=== PATIENT | male | born 1980 | race Asian ===

== ENCOUNTER 2017-10-22 15:09 | Emergency (ER) | payer SELFPAY ==
[~2017-10-22] VITALS: Ht 182.9 cm; Wt 97.5 kg
[2017-10-22 15:27] VITALS: BP 98/52
--- NOTE | 2017-10-22 15:38 | Emergency Room Report ---
History of Present Illness General Chief Complaint: Altered Level of Consciousness Source: EMS (Stuart Nowak MD) Present Illness HPI Patient is a 37-year-old male brought in by EMS after increased altered mental status. Patient was brought in from the street. He is a known past medical history. History is markedly limited by patient's mental status. Patient appears to be somewhat slow to respond. He cannot give his name. (Stuart Nowak MD) Allergies: Coded Allergies: UNABLE TO ASSESS (Unverified , 10/22/17) Patient History Reviewed Nursing Documentation: PMH: Agreed; PSxH: Agreed (Stuart Nowak MD) Nursing Documentation-PMH Past Medical History: No Stated History (Stuart Nowak MD) Review of Systems All Other Systems: limited - by poor historian (Stuart Nowak MD) Physical Exam Vital Signs Date Time Temp Pulse Resp B/P (MAP) Pulse Ox O2 Delivery O2 Flow Rate FiO2 10/22/17 15:02 97.8 86 18 116/70 96 Room Air 97.9 Sp02 EP Interpretation: reviewed, normal General Appearance: obese, Stupor Head: atraumatic ENT: normal ENT inspection, hearing grossly normal, normal voice Neck: normal inspection, full range of motion, supple, no bony tend Respiratory: normal inspection, lungs clear, normal breath sounds, no respiratory distress, no retraction, no wheezing Cardiovascular #1: regular rate, rhythm, no edema Gastrointestinal: normal inspection, normal bowel sounds, non tender, soft, no guarding, no hernia Genitourinary: no CVA tenderness Musculoskeletal: normal inspection, back normal, normal range of motion Neurologic: alert, responsive Psychiatric: normal inspection, judgement/insight normal, mood/affect normal Skin: normal inspection, normal color, no rash (Stuart Nowak MD) Medical Decision Making Diagnostic Impression: Primary Impression: Dehydration Additional Impression: Altered level of consciousness ER Course Patient presented for altered mental status. Differential diagnosis included but was not limited to ischemic stroke, subarachnoid hemorrhage, hypoglycemia, spinal cord injury, neurodegenerative disorder, urinary tract infection, hypoxemia.CT of head showed atrophic changes without evident acute hemorrhage or CVA. The laboratory testing was notable for a mildly elevated white blood count. Patient was started on IV fluids.The patient was given Zyprexa as well as other medications. He was noted to have improvement in his mental status over time. The patient appeared to some evidence of psychosis. The patient endorsed Dr. Bhatt after medical clearance pending a psychiatric evaluation. Labs Test 10/22/17 15:40 10/22/17 16:30 White Blood Count 14.5 K/UL (4.8-10.8) Red Blood Count 4.61 M/UL (4.70-6.10) Hemoglobin 14.4 G/DL (14.2-18.0) Hematocrit 40.1 % (42.0-52.0) Mean Corpuscular Volume 87 FL (80-99) Mean Corpuscular Hemoglobin 31.2 PG (27.0-31.0) Mean Corpuscular Hemoglobin Concent 35.8 G/DL (32.0-36.0) Red Cell Distribution Width 12.0 % (11.6-14.8) Platelet Count 218 K/UL (150-450) Mean Platelet Volume 7.5 FL (6.5-10.1) Neutrophils (%) (Auto) 78.3 % (45.0-75.0) Lymphocytes (%) (Auto) 13.3 % (20.0-45.0) Monocytes (%) (Auto) 7.1 % (1.0-10.0) Eosinophils (%) (Auto) 0.3 % (0.0-3.0) Basophils (%) (Auto) 1.0 % (0.0-2.0) Sodium Level 142 MMOL/L (136-145) Potassium Level 3.1 MMOL/L (3.5-5.1) Chloride Level 110 MMOL/L (98-107) Carbon Dioxide Level 24 MMOL/L (21-32) Anion Gap 8 mmol/L (5-15) Blood Urea Nitrogen 12 mg/dL (7-18) Creatinine 1.0 MG/DL (0.55-1.30) Estimat Glomerular Filtration Rate > 60 mL/min (>60) Glucose Level 108 MG/DL (74-106) Lactic Acid Level 1.00 mmol/L (0.4-2.0) Calcium Level 9.0 MG/DL (8.5-10.1) Total Bilirubin 0.7 MG/DL (0.2-1.0) Aspartate Amino Transf (AST/SGOT) 12 U/L (15-37) Alanine Aminotransferase (ALT/SGPT) 27 U/L (12-78) Alkaline Phosphatase 46 U/L (46-116) Troponin I 0.000 ng/mL (0.000-0.056) Total Protein 7.0 G/DL (6.4-8.2) Albumin 4.0 G/DL (3.4-5.0) Globulin 3.0 g/dL Albumin/Globulin Ratio 1.3 (1.0-2.7) Thyroid Stimulating Hormone (TSH) 1.389 uiU/mL (0.358-3.740) Salicylates Level 1.1 ug/mL (2.8-20) Acetaminophen Level < 2 MCG/ML (10-30) Serum Alcohol < 3 mg/dL Urine Opiates Screen Negative (NEGATIVE) Urine Barbiturates Screen Negative (NEGATIVE) Phencyclidine (PCP) Screen Negative (NEGATIVE) Urine Amphetamines Screen Negative (NEGATIVE) Urine Benzodiazepines Screen Negative (NEGATIVE) Urine Cocaine Screen Negative (NEGATIVE) Urine Marijuana (THC) Screen Negative (NEGATIVE) (Stuart Nowak MD) ER Course Patient signout to me. He is brought in from the street for altered mental status. He does not look too disheveled. After sleeping for several hours, he is awake but still very confused. He appear to have psychiatric issues. He said he lives in the [place]. He said his father live in [place] but unable to give a name or phone number. We try to call police for missing person but none was reported under this name. Patient is gravely disabled. 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 He would benefit from psychiatric evaluation and placement. Unless we are able to contact family member. We'll try to get in the morning. Patient is medically cleared. (KYLAH BHATT M.D.) ER Course Hospital Course 37-year-old M presents to ED with altered mental status Clinical course Patient initially seen and evaluated by Dr nowak; please see his note for full history and physical Labs reviewed-electrolytes okay, no leukocytosis, hemoglobin/hematocrit stable, tox panel negative patient allowed to sleep. initially concerned that patient is gravely disabled. patient is now AAOx3 in the morning. states he wishses to be discharged. says his family lives in [place]. he normally stays at a [facility]. He has money to go there now. patient is not a danger to himself or others at this time. 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 I feel this is a highly complex case requiring extensive working including EKG/Rhythm strip, Xray/CT/US, Blood/urine lab work, repeat exams while in ED, and administration of strong opiates/narcotics for pain control, admission to hospital or close patient follow up. Diagnosis -dehydration, ALOC Stable and discharged to home. Followup with PMD. Return to ED if symptoms recur or worsen Labs Test 10/22/17 15:40 10/22/17 16:30 White Blood Count 14.5 K/UL (4.8-10.8) Red Blood Count 4.61 M/UL (4.70-6.10) Hemoglobin 14.4 G/DL (14.2-18.0) Hematocrit 40.1 % (42.0-52.0) Mean Corpuscular Volume 87 FL (80-99) Mean Corpuscular Hemoglobin 31.2 PG (27.0-31.0) Mean Corpuscular Hemoglobin Concent 35.8 G/DL (32.0-36.0) Red Cell Distribution Width 12.0 % (11.6-14.8) Platelet Count 218 K/UL (150-450) Mean Platelet Volume 7.5 FL (6.5-10.1) Neutrophils (%) (Auto) 78.3 % (45.0-75.0) Lymphocytes (%) (Auto) 13.3 % (20.0-45.0) Monocytes (%) (Auto) 7.1 % (1.0-10.0) Eosinophils (%) (Auto) 0.3 % (0.0-3.0) Basophils (%) (Auto) 1.0 % (0.0-2.0) Sodium Level 142 MMOL/L (136-145) Potassium Level 3.1 MMOL/L (3.5-5.1) Chloride Level 110 MMOL/L (98-107) Carbon Dioxide Level 24 MMOL/L (21-32) Anion Gap 8 mmol/L (5-15) Blood Urea Nitrogen 12 mg/dL (7-18) Creatinine 1.0 MG/DL (0.55-1.30) Estimat Glomerular Filtration Rate > 60 mL/min (>60) Glucose Level 108 MG/DL (74-106) Lactic Acid Level 1.00 mmol/L (0.4-2.0) Calcium Level 9.0 MG/DL (8.5-10.1) Total Bilirubin 0.7 MG/DL (0.2-1.0) Aspartate Amino Transf (AST/SGOT) 12 U/L (15-37) Alanine Aminotransferase (ALT/SGPT) 27 U/L (12-78) Alkaline Phosphatase 46 U/L (46-116) Troponin I 0.000 ng/mL (0.000-0.056) Total Protein 7.0 G/DL (6.4-8.2) Albumin 4.0 G/DL (3.4-5.0) Globulin 3.0 g/dL Albumin/Globulin Ratio 1.3 (1.0-2.7) Thyroid Stimulating Hormone (TSH) 1.389 uiU/mL (0.358-3.740) Salicylates Level 1.1 ug/mL (2.8-20) Acetaminophen Level < 2 MCG/ML (10-30) Serum Alcohol < 3 mg/dL Urine Opiates Screen Negative (NEGATIVE) Urine Barbiturates Screen Negative (NEGATIVE) Phencyclidine (PCP) Screen Negative (NEGATIVE) Urine Amphetamines Screen Negative (NEGATIVE) Urine Benzodiazepines Screen Negative (NEGATIVE) Urine Cocaine Screen Negative (NEGATIVE) Urine Marijuana (THC) Screen Negative (NEGATIVE) (Rancho Koch MD) Last Vital Signs Date Time Temp Pulse Resp B/P (MAP) Pulse Ox O2 Delivery O2 Flow Rate FiO2 10/22/17 15:27 100.2 84 16 98/52 94 Room Air 100.2 Status: improved (Stuart Nowak MD) Status: improved (KYLAH BHATT M.D.) Status: improved (Rancho Koch MD) Disposition: HOME, SELF-CARE Condition: Stable Stuart Nowak MD Oct 22, 2017 15:38 KYLAH BHATT M.D. Oct 23, 2017 03:29 Rancho Koch MD Oct 23, 2017 09:07
[2017-10-22 16:13] LABS: EOSINOPHILS % (AUTO) 0.3 % (0.0-3.0); HEMATOCRIT 40.1 % (42.0-52.0); HEMOGLOBIN 14.4 G/DL (14.2-18.0); LYMPHOCYTES % (AUTO) 13.3 % (20.0-45.0); MEAN CORPUSCULAR VOLUME 87 FL (80-99); MONOCYTES % (AUTO) 7.1 % (1.0-10.0); NEUTROPHILS % (AUTO) 78.3 % (45.0-75.0); PLATELET COUNT 218 K/UL (150-450); RED BLOOD COUNT 4.61 M/UL (4.70-6.10); WHITE BLOOD COUNT 14.5 K/UL (4.8-10.8)
[2017-10-22 16:24] LABS: ANION GAP 8 mmol/L (5-15); BLOOD UREA NITROGEN 12 mg/dL (7-18); CARBON DIOXIDE 24 MMOL/L (21-32); CHLORIDE 110 MMOL/L (98-107); POTASSIUM 3.1 MMOL/L (3.5-5.1); SODIUM 142 MMOL/L (136-145)
[2017-10-22 16:37] LABS: ALANINE AMINOTRANSFERASE 27 U/L (12-78); ALBUMIN/GLOBULIN RATIO 1.3 (1.0-2.7); ALKALINE PHOSPHATASE 46 U/L (46-116); ASPARTATE AMINO TRANSFERASE 12 U/L (15-37); BILIRUBIN,TOTAL 0.7 MG/DL (0.2-1.0)
[2017-10-22] MEDS ORDERED: ZyPREXA Zydis 10mg tab ORAL ONE (18:45)
[2017-10-22 19:30] VITALS: BP 123/72
[2017-10-22 21:30] VITALS: BP 121/73
[2017-10-22 23:30] VITALS: BP 117/75
[2017-10-23 01:30] VITALS: BP 112/76
[2017-10-23 03:30] VITALS: BP 141/83
[2017-10-23 05:30] VITALS: BP 148/96
[2017-10-23 09:20] VITALS: BP 140/94
--- NOTE | 2017-10-23 10:38 | Diagnostic Imaging Report ---
Indication: Altered mental status Technique: Contiguous 5 mm thick transaxial imaging of the head obtained in a Siemens Sensation [address] scanner. Soft tissue and bone windows generated. Automatic Exposure Control was utilized. Total Dose length Product (DLP): 1534.[address] Dose Index Volume (CTDIvol): 70.38 mGy Comparison: none Findings: There is mild prominence of the ventricles, basal cisterns, and cerebral sulci consistent with atrophy. Mild, nonspecific, white matter hypoattenuation is noted throughout the brain consistent with chronic small vessel disease. There is no midline shift, edema, acute hemorrhage, mass effect, or abnormal extra-axial fluid collections. Left frontal craniotomy is noted. Trace amount of air demonstrated within the cranial vault such as the right lateral ventricle and left sylvian fissure. Nature of this is not known. Impression: No acute intracranial bleed, mass effect or edema. Mild atrophy of the brain. Nonspecific white matter hypoattenuation probably due to chronic small vessel disease. Trace pneumocephalus. This could be iatrogenic such as recent surgery, lumbar puncture or could be on the basis of trauma. Correlate clinically.. [facility] has communicated the preliminary results to the Emergency Department. Their findings are largely concordant with this report. The CT scanner at [facility] is accredited by the [employer] and the scans are performed using dose optimization techniques as appropriate to a performed exam including Automatic Exposure control.
== END 2017-10-23 09:20 | disposition home or self-care (01) ==
LOC: EDBD 15:09 → EMR 21:54
DX: R41.82 Altered mental status, unspecified (principal); E86.0 Dehydration
CPT/HCPCS: 36415; 70450; 80053; 80307; 83605; 84443; 84484; 85025; 87040; 99284; G0480; 80329; J8499